=== PATIENT | male | born 1995 | race Caucasian/White ===

== ENCOUNTER 2018-03-17 20:48 | Emergency (ER) | payer OTHER ==
[~2018-03-17] VITALS: Ht 157.5 cm; Wt 54.4 kg
[2018-03-17 20:57] VITALS: BP 131/63
[2018-03-17] MEDS ORDERED: TESSALON PERLE100 MG PO (21:03)
[2018-03-17] MEDS ORDERED: PROAIR HFA8.5 GM INH (21:03)
== END 2018-03-17 21:10 | disposition home or self-care (01) ==
LOC: M.ERS 20:48
DX: J20.9 Acute bronchitis, unspecified (principal); Z88.2 Allergy status to sulfonamides

== ENCOUNTER 2018-03-23 19:31 | Emergency (ER) | payer OTHER ==
[~2018-03-23] VITALS: Ht 162.6 cm; Wt 54.4 kg
[~2018-03-23 19:31] MED LIST: PROAIR HFA8.5 GM INH; TESSALON PERLE100 MG PO
[2018-03-23 20:20] VITALS: BP 114/59
== END 2018-03-23 20:20 | disposition home or self-care (01) ==
LOC: M.ERS 19:31
DX: R05 Cough (principal); R11.2 Nausea with vomiting, unspecified; Z88.1 Allergy status to other antibiotic agents

== ENCOUNTER 2018-05-09 16:36 | Emergency (ER) | payer OTHER ==
[~2018-05-09] VITALS: Ht 170.2 cm; Wt 58.5 kg
[2018-05-09 17:42] LABS: URINE BILIRUBIN NEGATIVE (Negative); URINE BLOOD NEGATIVE (Negative); URINE CLARITY CLEAR; URINE COLOR YELLOW; URINE GLUCOSE-RANDOM NEGATIVE (Negative); URINE KETONES NEGATIVE (Negative); URINE LEUKOCYTES-REFLEX NEGATIVE (Negative); URINE NITRITE-REFLEX NEGATIVE (Negative); URINE PROTEIN NEGATIVE (Negative); URINE SPECIFIC GRAVITY 1.015 (1.005-1.030); URINE UROBILINOGEN 0.2 E.U./dl (0.2-1.0)
[2018-05-09] MEDS ORDERED: VENTOLIN HFA 1818 GM INH (17:53)
[2018-05-09] MEDS ORDERED: ZPAK PO (17:53)
[2018-05-09 18:25] VITALS: BP 128/78
== END 2018-05-09 18:26 | disposition home or self-care (01) ==
LOC: M.ERS 16:36
PROVIDERS: Nurse Practitioner Family
DX: J40 Bronchitis, not specified as acute or chronic (principal); R11.2 Nausea with vomiting, unspecified; F17.210 Nicotine dependence, cigarettes, uncomplicated; Z88.2 Allergy status to sulfonamides

== ENCOUNTER 2018-09-10 11:10 | Emergency (ER) | payer OTHER ==
[~2018-09-10] VITALS: Ht 167.6 cm; Wt 59.4 kg
[~2018-09-10 11:10] MED LIST changes: +VENTOLIN HFA 1818 GM INH; +ZPAK PO
[2018-09-10 12:07] LABS: URINE BILIRUBIN NEGATIVE (Negative); URINE BLOOD NEGATIVE (Negative); URINE CLARITY CLEAR; URINE COLOR YELLOW; URINE GLUCOSE-RANDOM NEGATIVE (Negative); URINE KETONES NEGATIVE (Negative); URINE LEUKOCYTES-REFLEX NEGATIVE (Negative); URINE NITRITE-REFLEX NEGATIVE (Negative); URINE PROTEIN NEGATIVE (Negative); URINE UROBILINOGEN 0.2 E.U./dl (0.2-1.0)
[2018-09-10] MEDS ORDERED: PREDNISONE50 MG PO (12:14)
[2018-09-10] MEDS ORDERED: ZPAK PO (12:14)
[2018-09-10] MEDS ORDERED: VENTOLIN HFA 1818 GM INH (12:14)
[2018-09-10 13:09] VITALS: BP 122/82
== END 2018-09-10 13:07 | disposition home or self-care (01) ==
LOC: M.ERS 11:10
PROVIDERS: Nurse Practitioner Family
DX: J40 Bronchitis, not specified as acute or chronic (principal); J02.9 Acute pharyngitis, unspecified; Z88.2 Allergy status to sulfonamides

== ENCOUNTER 2019-03-06 12:27 | Emergency (ER) | payer OTHER ==
[~2019-03-06] VITALS: Ht 157.5 cm; Wt 54.4 kg
[~2019-03-06 12:27] MED LIST changes: +PREDNISONE50 MG PO
[2019-03-06 13:17] VITALS: BP 138/76
== END 2019-03-06 13:18 | disposition home or self-care (01) ==
LOC: M.ERS 12:27
DX: T63.441A Toxic effect of venom of bees, accidental (unintentional), initial encounter (principal); L53.9 Erythematous condition, unspecified; M79.89 Other specified soft tissue disorders; Z88.2 Allergy status to sulfonamides; Y92.89 Other specified places as the place of occurrence of the external cause

== ENCOUNTER 2019-06-26 16:59 | Emergency (ER) | payer OTHER ==
[~2019-06-26] VITALS: Ht 162.6 cm; Wt 59.0 kg
[2019-06-26] MEDS ORDERED: IBUPROFEN 800800 M1 PO (18:56)
[2019-06-26] MEDS ORDERED: NORCO 5-325 TA1 EAC1 PO (18:56)
[2019-06-26] MEDS ORDERED: CRUTCHES MISCELL (19:14)
[2019-06-26 19:27] VITALS: BP 144/71
== END 2019-06-26 19:29 | disposition home or self-care (01) ==
LOC: M.ERS 16:59
DX: S82.454A Nondisplaced comminuted fracture of shaft of right fibula, initial encounter for closed fracture (principal); F17.210 Nicotine dependence, cigarettes, uncomplicated; Z88.2 Allergy status to sulfonamides; X58.XXXA Exposure to other specified factors, initial encounter; Y93.39 Activity, other involving climbing, rappelling and jumping off; Y92.89 Other specified places as the place of occurrence of the external cause; Y99.8 Other external cause status

== ENCOUNTER 2019-08-19 20:48 | Emergency (ER) | payer OTHER ==
[~2019-08-19] VITALS: Ht 160 cm; Wt 59.0 kg
[~2019-08-19 20:48] MED LIST changes: +CRUTCHES MISCELL; +IBUPROFEN 800800 M1 PO; +NORCO 5-325 TA1 EAC1 PO
[2019-08-19 22:03] VITALS: BP 132/70
== END 2019-08-19 22:03 | disposition home or self-care (01) ==
LOC: M.ERS 20:48
DX: S82.491A Other fracture of shaft of right fibula, initial encounter for closed fracture (principal); F17.210 Nicotine dependence, cigarettes, uncomplicated; Z88.2 Allergy status to sulfonamides; X58.XXXA Exposure to other specified factors, initial encounter; Y93.89 Activity, other specified; Y92.89 Other specified places as the place of occurrence of the external cause; Y99.8 Other external cause status

== ENCOUNTER 2019-10-12 09:09 | Emergency (ER) | payer OTHER ==
[~2019-10-12] VITALS: Ht 157.5 cm; Wt 56.7 kg
[2019-10-12 09:48] LABS: INFLUENZA A ANTIGEN Negative (Negative); INFLUENZA B ANTIGEN Negative (Negative)
[2019-10-12] MEDS ORDERED: TESSALON PERLE100 MG PO (10:08)
[2019-10-12 10:16] VITALS: BP 129/72
== END 2019-10-12 10:17 | disposition home or self-care (01) ==
LOC: M.ERS 09:09
PROVIDERS: Emergency Medicine Emergency Medical Services
DX: J00 Acute nasopharyngitis [common cold] (principal); F17.210 Nicotine dependence, cigarettes, uncomplicated; Z88.0 Allergy status to penicillin; Z88.2 Allergy status to sulfonamides

== ENCOUNTER 2020-09-06 20:45 | Emergency (ER) | payer OTHER ==
[~2020-09-06] VITALS: Ht 160 cm; Wt 58.5 kg
[2020-09-06] MEDS ORDERED: NAPROSYN500 MG PO (22:58)
[2020-09-06] MEDS ORDERED: KEFLEX500 M1 PO (22:58)
[2020-09-06 23:06] VITALS: BP 115/63
== END 2020-09-06 23:07 | disposition home or self-care (01) ==
LOC: M.ERS 20:45
DX: S61.431A Puncture wound without foreign body of right hand, initial encounter (principal); F17.210 Nicotine dependence, cigarettes, uncomplicated; Z88.0 Allergy status to penicillin; Z88.2 Allergy status to sulfonamides; W45.0XXA Nail entering through skin, initial encounter; Y93.89 Activity, other specified; Y92.89 Other specified places as the place of occurrence of the external cause; Y99.8 Other external cause status

== ENCOUNTER 2020-11-09 16:48 | Emergency (ER) | payer OTHER ==
[~2020-11-09] VITALS: Ht 160 cm; Wt 59.0 kg
[~2020-11-09 16:48] MED LIST changes: +KEFLEX500 M1 PO; +NAPROSYN500 MG PO
[2020-11-09 17:20] LABS: ABSOLUTE EOSINOPHILS 0.1 thou/uL (0.0-0.7); ABSOLUTE LYMPHOCYTES 1.9 thou/uL (0.8-5.3); ABSOLUTE MONOCYTES 0.5 thou/uL (0.0-1.2); ABSOLUTE NEUTROPHILS 4.7 thou/uL (1.6-8.1); BASOPHILS 0.4 %; EOSINOPHILS 1.6 %; HEMOGLOBIN 15.5 gm/dL (14.0-18.0); LYMPHOCYTES 26.4 %; MCH 30.1 pg (26.0-34.0); MCHC 34.3 g/dL (28.0-37.0); MCV 87.7 fL (80.0-100.0); MONOCYTES 7.2 %; MPV 7.8 fl. (7.2-11.1); NUCLEATED RBCS 0 /100WBC; PLATELET COUNT* 217 thou/uL (150-400); POLYS 64.4 %; RBC 5.13 mil/uL (4.50-6.00); RDW-CV 13.1 % (10.5-14.5); WBC 7.3 thou/uL (4.0-11.0)
[2020-11-09 17:29] LABS: CALCIUM 8.7 mg/dL (8.5-10.1); CREATININE 0.8 mg/dL (0.6-1.3); POTASSIUM 3.5 mmol/L (3.5-5.1)
[2020-11-09 17:34] LABS: ALBUMIN 4.1 g/dL (3.4-5.0); TOTAL BILIRUBIN 0.4 mg/dL (<0.1-1.0); TOTAL PROTEIN 7.6 g/dL (6.4-8.2)
[2020-11-09 17:35] LABS: URINE BILIRUBIN NEGATIVE (Negative); URINE BLOOD NEGATIVE (Negative); URINE CLARITY CLEAR; URINE COLOR YELLOW; URINE GLUCOSE-RANDOM NEGATIVE (Negative); URINE KETONES NEGATIVE (Negative); URINE LEUKOCYTES-REFLEX NEGATIVE (Negative); URINE NITRITE-REFLEX NEGATIVE (Negative); URINE PROTEIN NEGATIVE (Negative); URINE SPECIFIC GRAVITY 1.015 (1.005-1.030); URINE UROBILINOGEN 0.2 E.U./dl (0.2-1.0)
[2020-11-09] MEDS ORDERED: ONDANSETRON ODT4 MG PO (17:54)
[2020-11-09] MEDS ORDERED: PEPCID20 MG PO (17:54)
[2020-11-09 18:04] VITALS: BP 131/63
== END 2020-11-09 18:05 | disposition home or self-care (01) ==
LOC: M.ERS 16:48
PROVIDERS: Physician Assistant
DX: R11.2 Nausea with vomiting, unspecified (principal); R19.7 Diarrhea, unspecified; F17.210 Nicotine dependence, cigarettes, uncomplicated; Z88.0 Allergy status to penicillin; Z88.2 Allergy status to sulfonamides